=== PATIENT | female | born 1990 | race African-American/Black ===

== ENCOUNTER 2017-08-31 05:53 | Inpatient (IN) ==
[2017-08-31] MEDS ORDERED: ceFAZolin 2,000 MG in PREMIX 1 EACH IV ONE (06:03)
[2017-08-31] MEDS ORDERED: CITRIC ACID/SODIUM CITRATE 30 ML UDCUP PO ONE (06:03)
[2017-08-31] MEDS ORDERED: FAMOTIDINE 20 MG/2 ML VIAL IV ONE (06:03)
[2017-08-31 06:31] LABS: Basophils % 0.1 % (0.0-0.8); Eosinophils # 0.1 10*3/uL (0.0-0.87); Hematocrit 37.6 VOL% (35.7-47.0); Hemoglobin 12.9 GM/DL (12.0-16.0); Immature Granulocytes % 0.5 %; Immature Granulocytes Absolute 0.04 #; Lymphocytes # 1.9 10*3/uL (1.4-4.0); Lymphocytes % 23.5 % (21.3-54.2); Mean Corpuscular HGB Conc 34.3 GM/DL (32-36); Mean Corpuscular Hemoglobin 29 PG (27-34); Mean Corpuscular Volume 83.4 FL (87-102); Mean Platelet Volume 10.6 FL (9.6-12.0); Monocytes # 0.9 10*3/uL (0.11-0.8); Neutrophils % 63.9 % (38.7-73.9); Platelet Count 249 T/CUMM (130-400); Red Blood Count 4.51 MC/CUMM (3.8-5.5); White Blood Count 7.9 T/CUMM (4-12)
[2017-08-31] MEDS: LACTATED RINGERS 1,000 ML IV SCH ×3 (06:53→21:10)
[2017-08-31] MEDS ORDERED: OXYTOCIN/LR 20 UNIT/1,000 ML BAG IV ONE (07:11)
--- NOTE | 2017-08-31 08:52 | History and Physical Update ---
History and Physical Update - History and Physical H&P was reviewed, the patient examined and there: are no changes in the patients condition since last H&P was completed. - Dictation Physical: refer to scanned H&P - Physical Exam Mental Status: alert and oriented Heart: regular rate and rhythm Lung: clear to auscultation Abdomen: within normal limits Vitals: within normal limits History and Physical Changes: No changes since last visit yesterday.
[2017-08-31] MEDS ORDERED: PHENYLEPHRINE 1 MG/10 ML SYRINGE IV ONE (09:12)
[2017-08-31 11:00] LABS: Cord Venous Blood HCO3 22.2 MMOL/L; Cord Venous Blood PO2 38.9
[2017-08-31] MEDS ORDERED: TISSUE ADHESIVE 1 EACH APPLICATOR TOP ONE (11:00)
[2017-08-31 11:07] LABS: Apearance,Urine CLEAR (Clear); Bacteria,Urine Occasional /HPF (Few); Bilirubin,Urine Negative (Negative); Blood, Urine Negative (Negative); Glucose,Urine (UA) Negative (Negative); Ketones,Urine Negative (Negative); Mucus,Urine Occasional /LPF (Occasional); Nitrite,Urine Negative (Negative); Protein,Urine Negative; RBC,Urine 1 /HPF (0-4); Urine Color Yellow (Yellow); Urine Specific Gravity 1.008 (1.001-1.035); Urine Urobilinogen < 2.0 EU/DL (0.2-1.0); WBC,Urine <1 /HPF (0-6)
[2017-08-31] MEDS ORDERED: ACETAMINOPHEN 325 MG TABLET PO PRN (11:16)
[2017-08-31] MEDS ORDERED: RHO(D) IMMUNE GLOBULIN 300 MCG SYRINGE IM ONE (11:16)
[2017-08-31] MEDS ORDERED: ONDANSETRON 4 MG/2 ML VIAL IV PRN (11:16)
[2017-08-31] MEDS ORDERED: ePHEDrine 50 MG/ML AMP ONE (11:26)
[2017-08-31] MEDS ORDERED: fentaNYL 100 MCG/2 ML VIAL ONE (11:26)
[2017-08-31] MEDS ORDERED: MORPHINE 10 MG/10 ML VIAL ONE (11:26)
--- NOTE | 2017-08-31 11:26 | Operative Note ---
Date of procedure: 08/31/17 Pre-op diagnosis: Previous delivery at term for repeat Post-op diagnosis: same Procedure: Repeat low transverse d Patient was taken the operating room, administered a spinal anesthetic and sterilely prepped and draped in the supine position with a Odonnell catheter in place. A lower abdominal transverse incision was made through the skin and carried downward to the anterior rectus sheath. Individual bleeding sites were fulgurated for hemostasis. The anterior rectus sheath was incised transversely and dissected away from the underlying rectus muscle. Rectus muscle was divided in the midline and retracted bilaterally. A bleeder was identified under the left rectus muscle which appear to be a perforating vessel. This was ligated with suture.Peritoneum was elevated with a pair of hemostats and the peritoneum incised with Metzenbaum scissors and extended longitudinally under direct visualization. Subhash blade was placed in the lower portion of the incision and vesicouterine fold identified. The lower uterine segment was distended above the bladder, with the bladder being low in the pelvis. This did not require dissection the bladder away from the remaining uterine wall. Transverse incision was made with scissors through the distended lower uterine segment above the bladder and membranes were reached the myometrium was expanded digitally with pressure and the membranes ruptured with an Allis clamp. A hand was inserted into the lower uterine segment and the head grasped and delivery of the head attempted. This was unsuccessful and the head was stabilized with a single forceps blade and delivery again attempted with fundal pressure. The forcep blade was removed and a vacuum extractor applied to the head. The incision was extended laterally in the abdominal wall and somewhat upward and lateral on the lower uterine segment. The head could then be successfully delivered. The nasopharynx was suctioned and the cord clamped and cut. was transferred to the warmer. The placenta was delivered manually and Pitocin drip administered. The uterus was externalized and placed on traction. Inner layer of the myometrium was closed with a running interlocking stitch of 1-0 Vicryl. The outer layer was closed with a running stitch of 1-0 Vicryl. The vesicouterine fold was closed with running stitch of 1-0 Vicryl. Uterus was replaced in the abdomen and the abdomen irrigated with normal saline. The peritoneum was elevated and closed with running suture of 2- 0 Vicryl. Rectus muscle was reapproximated in the midline with running stitch of 2-0 Vicryl. The anterior rectus sheath was closed with a running interlocking suture of 1-0 Vicryl in laterally and meeting in the midline. Stay sutures were placed either side of the midline time. The fat was irrigated and closed with running suture of 2-0 Vicryl. Again was closed with a running subcuticular suture of 3-0 Vicryl. Dermabond was placed on the wound. Anesthesia: epidural Surgeon / Physician: Rolando Aragon Estimated blood loss: other (500 cc) Specimens: none sent Condition: stable Disposition: post procedure unit Results - Labs CBC & BMP: 08/31/17 06:17
[2017-08-31] MEDS ORDERED: LACTATED RINGERS 1,000 ML IV SCH (11:30)
[2017-08-31] MEDS ORDERED: HYDROmorphone 2 MG/1 ML VIAL IV PRN (14:52)
--- NOTE | 2017-08-31 17:36 | Anesthesia Post-Op ---
Anesthesia Post OP - Post Ansesthetic Evaluation Patient seen in post op: Yes Resp: within normal limits CV: within normal limits Mental: within normal limits Temp: within normal limits [id number]: within normal limits Nausea and Vomiting: within normal limits Pain: within normal limits
[2017-09-01] MEDS: IBUPROFEN 800 MG TABLET PO PRN ×2 (00:24→15:24)
[2017-09-01] MEDS: DOCUSATE SODIUM 100 MG CAPSULE PO SCH ×3 (01:50→21:01)
[2017-09-01 04:59] LABS: Basophils % 0.2 % (0.0-0.8); Eosinophils # 0.1 10*3/uL (0.0-0.87); Eosinophils % 0.5 % (0.00-10.9); Hematocrit 32.4 VOL% (35.7-47.0); Hemoglobin 11.3 GM/DL (12.0-16.0); Immature Granulocytes % 0.7 %; Immature Granulocytes Absolute 0.11 #; Lymphocytes # 1.3 10*3/uL (1.4-4.0); Lymphocytes % 8.7 % (21.3-54.2); Mean Corpuscular HGB Conc 34.9 GM/DL (32-36); Mean Corpuscular Hemoglobin 29 PG (27-34); Mean Corpuscular Volume 83.7 FL (87-102); Mean Platelet Volume 11.1 FL (9.6-12.0); Monocytes # 1.4 10*3/uL (0.11-0.8); Monocytes % 9.4 % (1.7-12.7); Neutrophils % 80.5 % (38.7-73.9); Platelet Count 205 T/CUMM (130-400); Red Blood Count 3.87 MC/CUMM (3.8-5.5); Red Cell Distribution Width 13.2 % (9.3-17.3); White Blood Count 14.9 T/CUMM (4-12)
[2017-09-01] MEDS ORDERED: diphenhydrAMINE CAP 25 MG CAPSULE ONE (11:40)
[2017-09-01] MEDS: diphenhydrAMINE CAP 25 MG CAPSULE PO PRN ×2 (11:47→21:01)
--- NOTE | 2017-09-01 14:31 | OB/GYN Progress Note ---
Assessment and Plan (1) delivery delivered Problem details: No problems idetified Status: Acute Assessment and plan: Good postoperative progress. Current Visit: Yes LIBRARY TECHNICIAN - PN: Subj Interval history: No complaints, doing well with pain medications. Exam LIBRARY TECHNICIAN - Constitutional Vitals: Vital Signs Temp Pulse Resp BP Pulse Ox 09/01/17 11:34 97.9 F 98 H 20 119/69 98 09/01/17 07:45 97.9 F 99 H 18 110/58 96 09/01/17 04:00 98.6 F 90 18 103/46 99 09/01/17 03:00 18 09/01/17 02:00 18 09/01/17 00:00 98.3 F 94 H 18 100/53 98 08/31/17 20:00 98.2 F 96 H 18 125/69 99 08/31/17 15:00 98.1 F 91 H 18 120/68 99 General appearance: no acute distress - Head Head exam: Present: normal inspection - Respiratory Respiratory exam: Present: clear to auscultation bilaterally. Absent: accessory muscle use - Breast Breasts: as per HPI, change in shape, mass - Cardiovascular Cardiovascular exam: Present: regular rate and rhythm - GI/Abdominal GI/Abdominal exam: Present: organomegaly (fundus tonci 3 fingers below the umbilicus). Absent: distended - Extremities Exam Extremities exam: Present: normal inspection - Back Exam Back exam: Present: normal inspection - Neurological Exam Neurological exam: Present: alert, oriented X3 - Psychiatric Psychiatric exam: Present: normal affect, normal mood. Absent: anxious, depressed - Skin Skin exam: Present: normal color, warm Results - Labs CBC & BMP: 09/01/17 03:47
[2017-09-01] MEDS ORDERED: oxyCODONE/ACETAMINOPHEN 5-325 MG TABLET ONE (15:39)
--- NOTE | 2017-09-01 18:55 | Discharge Summary ---
Hospital Course - Hospital Course Hospital Course: Admitted for repeat at term, which was performed without complication. Postop care for patient and fetus unremarkable. Diagnosis - Discharge Diagnosis (1) delivery delivered Status: Acute (2) Status post repeat low transverse section Status: Acute Discharge Plan - Discharge Data Disposition: Disch To Home/Self Care Condition at Discharge: Stable Discharge Diet: advance to your usual diet Activity: resume usual activities as tolerated Hygiene: may shower Weight Bearing at Discharge: full weight bearing Driving: not until seen by doctor Contact your physician if you experience:: fever over 101, Difficulty voiding, Redness or swelling, Nausea/Vomiting, Shortness of breath, Bleeding, pain uncontrolled by pain medications - Discharge Medications No Action No Known Home Medications [No Known Home Medications] No Known Home Medications [No Known Home Medications] - Follow Up or Referral - Forms/Instructions Exam - Constitutional Vitals: Period Temp Pulse Resp BP Sys/[place] Pulse Ox Last 24 Hr 97.9 F-99.2 F 90-110 18-20 100-137/46-70 96-99 General appearance: no acute distress - Head Head exam: Present: normal inspection, normocephalic - Neck Neck exam: Present: normal inspection - Respiratory Respiratory exam: Present: clear to auscultation bilaterally. Absent: accessory muscle use - Cardiovascular Cardiovascular exam: Present: regular rate and rhythm - GI/Abdominal GI/Abdominal exam: Present: soft. Absent: guarding, tenderness, rebound - Extremities Exam Extremities exam: Present: normal inspection - Back Exam Back exam: Present: normal inspection - Neurological Exam Neurological exam: Present: alert, oriented X3 - Psychiatric Psychiatric exam: Present: normal affect, normal mood - Skin Skin exam: Present: normal color, warm Discharge Results Labs on day of discharge: Labs from last 24 hours 09/01/17 03:47 WBC 14.9 H D RBC 3.87 Hgb 11.3 L Hct 32.4 L MCV 83.7 L MCH 29 MCHC 34.9 RDW 13.2 Plt Count 205 MPV 11.1 Neut % (Auto) 80.5 H Lymph % (Auto) 8.7 L [place] % (Auto) 9.4 Eos % (Auto) 0.5 Baso % (Auto) 0.2 Neut # (Auto) 12.0 H Lymph # (Auto) 1.3 L [place] # (Auto) 1.4 H Eos # (Auto) 0.1 Baso # (Auto) 0.0 Immature Gran % 0.7 Nucleated RBC % 0.0 Immature Gran # 0.11 Nucleated RBCs # 0.00 Immature Plt Fraction 0.0 DS: Provider Date of admission: 08/31/17 06:04 Primary care physician: . No PCP Attending physician on admission: Rolando Aragon DO Consults: 08/31/17 06:04 Consult to Anesthesiology [CONS] Routine Consulting Provider: Reason for Anesthesiology: Pre-op Clearance 08/31/17 11:16 Consult to Emergency Spill Response Technician [CONS] Routine Consult Emergency Spill Response Technician: Breast Feeding Discharging clinician: Rolando Aragon DO Expected date of discharge: 09/02/17
[2017-09-01] MEDS: MAGNESIUM HYDROXIDE SUSP 30 ML UDCUP PO PRN (22:25)
[2017-09-01] MEDS: SIMETHICONE CHEW 80 MG TABLET PO PRN (22:25)
[2017-09-02 08:32] VITALS: BP 115/68
[2017-09-02] MEDS: DOCUSATE SODIUM 100 MG CAPSULE PO SCH (10:20)
[2017-09-02] MEDS: SIMETHICONE CHEW 80 MG TABLET PO PRN (10:20)
[2017-09-02] MEDS: MAGNESIUM HYDROXIDE SUSP 30 ML UDCUP PO PRN (10:20)
[2017-09-02] MEDS ORDERED: HYDROCORTISONE 1% CREAM 28 GM TUBE TOP PRN (10:24)
== END 2017-09-02 11:20 | disposition home or self-care (01) | DRG 766 ==
LOC: N.LDOUT 05:53 → N.LD 05:55 → N.OB 13:52
PROVIDERS: ADMIT Obstetrics & Gynecology; ATTEND Obstetrics & Gynecology
PROC: LDCSECT (ICD-10-PCS; 2017-08-31 08:00)